=== PATIENT | female | born 1970 | race Caucasian/White ===

== ENCOUNTER 2019-03-11 05:39 | Day surgery (SDC) | payer MEDICAID ==
[~2019-03-11] VITALS: Ht 152.4 cm; Wt 51.7 kg
[~2019-03-11 05:39] MED LIST: BACTRIM; IBUPROFEN; LACTATED RINGERS 1,000 ML IV SCH
[2019-03-11] MEDS ORDERED: BUPIVACAINE/EPINEPH/PF 0.25%/0.0005 10ML ONE (06:42)
[2019-03-11] MEDS ORDERED: MORPHINE SULFATE/PF 1MG/ML 10ML AMP ONE (06:43)
[2019-03-11 07:37] LABS: UCG SCREEN NEGATIVE
[2019-03-11] MEDS ORDERED: FENTANYL CITRATE/PF 50MCG/ML 2ML VIAL ONE (08:02)
[2019-03-11] MEDS ORDERED: MIDAZOLAM HCL 2 MG/2 ML VIAL ONE (08:03)
[2019-03-11] MEDS ORDERED: PROPOFOL 200MG/20ML VIAL IV ONE (08:03)
[2019-03-11] MEDS ORDERED: CEFAZOLIN SODIUM 1000MG/VIAL ONE (08:18)
[2019-03-11] MEDS ORDERED: SODIUM CHLORIDE 0.9% 10ML VIAL ONE (08:18)
[2019-03-11] MEDS ORDERED: DEXAMETHASONE 4MG/ML 1ML VIAL ONE (08:34)
[2019-03-11] MEDS ORDERED: ONDANSETRON HCL 4MG/2ML INJ ONE (08:34)
[2019-03-11] MEDS ORDERED: KETOROLAC 30MG/ML VIAL ONE (10:04)
[2019-03-11] MEDS ORDERED: HYDROCODONE/ACETAMINOPHEN 10/325MG TABLET PO PRN (11:00)
[2019-03-11] MEDS: HYDROMORPHONE HCL/PF 2MG/ML CPJ IV PRN ×5 (11:04→11:38)
[2019-03-11 11:38] VITALS: BP 118/64
== END 2019-03-11 14:10 | disposition home or self-care (01) ==
LOC: OR 05:39
PROVIDERS: ATTEND Orthopaedic Surgery
DX: S83.271A Complex tear of lateral meniscus, current injury, right knee, initial encounter (principal); M94.261 Chondromalacia, right knee; M65.88 Other synovitis and tenosynovitis, other site; Z79.82 Long term (current) use of aspirin; Z79.899 Other long term (current) drug therapy; X58.XXXA Exposure to other specified factors, initial encounter; Y93.89 Activity, other specified; Y92.89 Other specified places as the place of occurrence of the external cause; Y99.8 Other external cause status
CPT/HCPCS: 29876; 29881; 81025; 88304; 88311; 93005; 97116; 97162; J0171; J0690; J1100; J1170; J1885; J2274; J2405; J2704; J3010; J7040; J2250